=== PATIENT | female | born 1960 | race Caucasian/White ===

== ENCOUNTER 2024-10-23 12:56 | Outpatient (AMB) | payer OTHER, SELFPAY ==
[2024-10-23 13:00] VITALS: BP 124/70; PULSE 80; O2SAT 99; BMI 20.5
--- NOTE | 2024-10-23 13:00 | A.OFFVIS_ITS ---
Vital Signs 10/23/24 13:00 Height 5 ft 6.5 in Weight 128 lb 11.999 oz BMI 20.5 BP 124/70 Blood Pressure Location Lt brachial Position Sitting Pulse 80 Pulse Source Pulse Oximeter Pulse Oximetry (%) 99 Oxygen Delivery Method Room Air Intake Visit Reasons: RA/CM Intake Note: Patient presents today for RA, she was referred by her PCP, Oralia Patel. Allergies dairy Adverse Reaction (Uncoded 10/23/24 13:06) arthritis is worse gluten Adverse Reaction (Uncoded 10/23/24 13:06) Diarrhea HPI HPI RA/CM: Details: Previous patient of [facility] presenting to [facility] care. She has a history of seropositive rheumatoid arthritis previously treated with methotrexate from 10/09/2021 to 12/09/2023 discontinued due to pattern of post methotrexate finger joint swelling. MTX caused low mood. Leflunomide from 12/09/2023 to 03/09/2024 discontinued due to new leukopenia and progressive anemia. Hematology evaluated patient iron infusion. Failed etanercept 10/09/2022 to 01/09/2023 caused more pain. She has also participated in Rheumatology research with [facility] 03/2023 vagus nerve stimulator. She continues to follow-up at [facility] for research post stimulator implant. Humira 07/2024- She was initially diagnosed with RA 2019. She had ultrasound findings of inflammatory arthritis at [facility] where she was referred from [facility]. She is now on Humira and it is causing pain in interphalanges. She feels that joint pain is worse. US Left knee arthrocetesis was performed by Rheumatology [facility] with jennings's cyst aspirated last week. Fluid was drained but she did not receive cortisone injection. Prednisone was used to treat palmar nodules MCP region of bilateral hands in the past but it caused more pain and nodules did not resolve. Hx IDDM. Hx osteoporosis with compression fracture on Tymlos prescribed by PCP as initial treatment. [facility] Medical History (Updated 10/23/24 @ 14:33 by Saw Acuna MD) Intraocular hemorrhage of left eye Microscopic colitis Osteoporosis Rheumatoid arthritis delivery delivered B12 deficiency Iron deficiency Diabetes type 1 Surgical History (Updated 10/23/24 @ 13:33 by Gaye Fernandez CMA) S/P placement of VNS (vagus nerve stimulation) device Family History (Updated 10/23/24 @ 13:39 by Gaye Fernandez CMA) Mother Hypothyroidism Pernicious anemia Social History (Updated 10/23/24 @ 13:36 by Gaye Fernandez CMA) Alcohol intake: current Alcohol intake frequency: holidays/special occasions only Patient Tobacco Use Status: Never used Tobacco Physical Exam Vital Signs: Last Vital Signs Pulse 80 10/23/24 13:00 BP 124/70 10/23/24 13:00 Pulse Ox 99 10/23/24 13:00 Oxygen Delivery Method Room Air 10/23/24 13:00 BMI result Body Mass Index 20.5 Const Other: General: Comfortable CVS: RRR Respiratory: clear to auscultation bilaterally. Good respiratory effort Skin: No lesions seen MSK: Tender to palpate right 2nd and 3rd MCP with synovitis noted, tender to palpate left 2nd PIP with synovitis present. No MCP tenderness. [place]berden nodes present. Good range of motion of upper extremity and lower extremities. Left knee synovitis present with tenderness on palpation. No MTP tenderness. Assessment & Plan Assessment & Plan (1) Rheumatoid arthritis: Comment: Seropositive. She has had treatment failure on Humira. She has also failed Enbrel and had reaction to methotrexate and leflunomide. We discussed next steps in DMARD therapy. Discussed side effects and benefits with Actemra infusion for subcutaneous injection. Patient would like to think about which method of Actemra she would like to proceed with. Code(s): M06.9 - Rheumatoid arthritis, unspecified Category: Medical Qualifiers: Rheumatoid arthritis location: multiple sites Rheumatoid factor presence: unspecified presence Qualified Code(s): M06.9 - Rheumatoid arthritis, unspecified Plan: Labs for disease and drug monitoring ordered. Patient will call back when she decides that she wants to go for with Actemra infusion or subcutaneous injection She will start taking ibuprofen 600 mg b.i.d. for 1 week If left knee swelling worsens, she will call office for urgent appointment for cortisone injection Immunizations are up-to-date Return to clinic in 3 months (2) Other skilled nursing (current) drug therapy: Code(s): Z79.899 - Other skilled nursing (current) drug therapy Category: Medical Plan: See above Orders: Orders Hepatitis B,C Profile Today M06.9 - Rheumatoid arthritis, unspecified Lipid Panel Today M06.9 - Rheumatoid arthritis, unspecified Rheumatoid Factor Today M06.9 - Rheumatoid arthritis, unspecified Creatinine Today M06.9 - Rheumatoid arthritis, unspecified Alanine Aminotransferase Today M06.9 - Rheumatoid arthritis, unspecified Aspartate Amino Transferase Today M06.9 - Rheumatoid arthritis, unspecified Complete Blood Count Auto Diff Today M06.9 - Rheumatoid arthritis, unspecified T Spot TB Today M06.9 - Rheumatoid arthritis, unspecified Cyclic Citrullinated Peptide Today M06.9 - Rheumatoid arthritis, unspecified Coding Level of Care Code New Pt Level 4 (42937) Diagnoses Rheumatoid arthritis involving multiple sites, unspecified whether rheumatoid factor present M06.9 Rheumatoid arthritis location: multiple sites Rheumatoid factor presence: unspecified presence Other rn long term care (current) drug therapy Z79.899
--- OUTSIDE RECORDS SUMMARY | 2024-10-29 19:19 | XMS_ITS | Continuity of Care Document ---
Author Organization [facility] Address [address] [place] [address] [address] [place], [place] Phone [phone] Care Team Providers Care Director General Name Role Phone Mayo Angel MD Care Team Information Receiv er Unavailable Social History Type Date Description Comments Sex Unknown
== END 2024-10-23 14:31 | disposition home or self-care (01) ==
PROVIDERS: PCP Family Medicine; Visit Provider Internal Medicine Rheumatology
DX: M06.9 Rheumatoid arthritis, unspecified (principal); Z79.899 Other long term (current) drug therapy
CPT/HCPCS: 99204

== ENCOUNTER 2024-10-26 07:01 | Outpatient (REF) | payer OTHER, SELFPAY ==
[2024-10-26 07:17] LABS: MANUAL DIFF FLAG NO
[2024-10-26 09:06] LABS: Basophils Percent Auto 0.8 % (0-2); Eosinophils Absolute Auto 0.2 X10*3/uL (0.0-0.4); Eosinophils Percent Auto 6.4 % (0-4); Hematocrit 35.5 % (37.0-47.0); Hemoglobin 12.2 g/dl (12.0-16.0); Imm Gran Abs Auto 0.01 X10*3/uL (0.00-0.03); Imm Gran Pct Auto 0.3 % (0.0-0.4); Lymphocytes Absolute Auto 1.5 X10*3/uL (1.2-4.9); Lymphocytes Percent Auto 40.1 % (20-40); Mean Corpuscular HGB Conc 34.4 g/dl (31.0-35.0); Mean Corpuscular Hemoglobin 32.3 pg (27.0-33.0); Mean Corpuscular Volume 93.9 fL (80.0-98.0); Mean Platelet Volume 10.8 fL (9.4-12.3); Monocytes Absolute Auto 0.4 X10*3/uL (0.1-1.2); Monocytes Percent Auto 9.9 % (2-11); Neutrophils Absolute Auto 1.5 x10*3/uL (2.0-8.3); Neutrophils Percent Auto 42.5 % (45-73); Platelet Count 265 X10*3/uL (160-400); Red Blood Count 3.78 X10*6/uL (4.20-5.50); Red Cell Distribution Width 12.6 % (11.0-16.0); White Blood Count 3.6 X10*3/uL (4.8-10.8)
[2024-10-26 09:43] LABS: Alanine Aminotransferase 21 U/L (0-31); Aspartate Amino Transferase 32 U/L (5-31); Cholesterol 172 mg/dL (<200); Estimated Glomerular Filt Rate > 60; HDL Cholesterol 82 mg/dL (>40); LDL Cholesterol Calculated 83 mg/dL (<100); Triglycerides 38 mg/dL (<150)
[2024-10-26 09:48] LABS: Rheumatoid Factor < 13.0 IU/mL (<15.0)
[2024-10-28 08:36] LABS: HBS Num1 0.18 mIU/mL (0-7.99); HBc Num1 0.07 S/CO (0.00-0.79); HBsAGNum1 0.38 S/CO (0.00-0.99); Hepatitis B Core Antibody Nonreactive (Nonreactive); Hepatitis B Surface Antigen Negative (Negative); ~HepC Num1 0.07 S/CO (0.00-0.79); ~Hepatitis B Surface Antibody NONREACTIVE (Nonreactive); ~Hepatitis C Antibody Nonreactive (Nonreactive)
--- OUTSIDE RECORDS SUMMARY | 2024-10-30 11:35 | XMS_ITS | Continuity of Care Document ---
Author Organization [facility] Address [address] [place] [address] [address] [place], [place] Phone [phone] Care Team Providers Care Nuclear Medicine Officer Name Role Phone Mayo Angel MD Care Team Information Receiv er Unavailable Social History Type Date Description Comments Sex Unknown
[2024-10-31 16:14] LABS: Cyclic Citrullinated Peptide <16 UNITS
== END 2024-10-26 07:02 | disposition home or self-care (01) ==
LOC: HO.LAB 07:01
PROVIDERS: PCP Family Medicine; Visit Provider Internal Medicine Rheumatology
DX: M06.9 Rheumatoid arthritis, unspecified (principal)
CPT/HCPCS: 36415; 80061; 82565; 84450; 84460; 85025; 86200; 86431; 86704; 86706; 86803; 87340